=== PATIENT | male | born 1990 | race Caucasian/White ===

== ENCOUNTER 2016-11-01 10:57 | Emergency (ER) | payer SELFPAY ==
[2016-11-01 11:19] VITALS: BP 133/86
--- NOTE | 2016-11-01 11:20 | ED Physician Documentation ---
Sore Throat/Dental Pain - HISTORIAN Historian: patient - HPI Chief Complaint: Dental Pain Onset: days ago (3-4 days) Context: Fractured Tooth, Abscess, Dental Caries Associated Symptoms: moderate, R ear pain Worsened By: heat, cold (can eat soft foods only) - ROS CONST: no problems CVS/RESP: none GI/: denies: problems urinating, nausea, vomiting NEURO/PSYCH: none - PAST HX Past History: other (seizures) Other History: none Allergies/Adverse Reactions: Allergies Allergy/AdvReac Type Severity Reaction Status Date / Time tramadol Allergy Severe seizure Verified 11/01/16 11:09 Home Medications: Ambulatory Orders Medication Instructions Recorded NK [NK] 11/01/16 - SOCIAL HX Smoking History: less than 1 pack/day Alcohol Use: occasionally Drug Use: none - FAMILY HX Family History: No - REVIEWED ASSESSMENTS Nursing Assessment Reviewed: Yes Vitals Reviewed: Yes Dental Pain Physical Exam - EXAM General Appearance: moderate distress Head/Neck: head nml inspection Eyes: eyes nml inspection Mouth/Throat: gum swelling around teeth, widespread dental decay Respiratory: no resp. distress, breath sounds nml CVS: reg. rate & rhythm, heart sounds nml Abdomen: soft, non-tender Extremities: non-tender, nml ROM Skin: warm/dry, normal color. No: cyanosis, diaphoresis, jaundice Neuro/Psych: anxiety, depression. No: weakness Discharge Clincal Impression: dental caries abscess Home Medications: Ambulatory Orders NK [NK] 11/01/16 Comments: teeth 17 18 19. must see dentist very soon Condition: Fair Disposition: 01 HOME, SELF-CARE Decision to Admit: NO Decision Time: 11:23
== END 2016-11-01 11:20 | disposition home or self-care (01) ==
LOC: ED 10:57
DX: K02.9 Dental caries, unspecified (principal)
CPT/HCPCS: 99282; 99283

== ENCOUNTER 2016-11-28 09:17 | Emergency (ER) | payer SELFPAY ==
--- NOTE | 2016-11-28 09:33 | ED Physician Documentation ---
Seizure - HISTORIAN Historian: patient - HPI Stated Complaint: seizure Chief Complaint: Seizure Last known Well Date: 11/28/16 Last Known Well Time: 10:53 Last known Well Code/Unknown Code: Known Witnessed By: family Preceding Symptoms: none Character of Seizure(s): lost consciousness, "shaking all over". denies: incontinence of urine, incontinence of stool Postictal Symptoms: confusion Location of Injury: other (generalized pain to the left side) Further Comments: yes (Patient states that he has seizures. Has one about every 4-6 months. Had a seizure yesterday that was witnessed. No precipitating factor noted. Has not been taking seizure med since 2013, had been taking Keppra . Patient states that he has been having a lot of pain on the left side associated with his seizure.) - ROS NEURO/PSYCH: denies: headache, fainting EYES/ENT: none CVS/RESP: other (chest wall pain) GI/: denies: nausea, vomiting - PAST HX Previous seizure/seizure disorder: none Allergies/Adverse Reactions: Allergies Allergy/AdvReac Type Severity Reaction Status Date / Time tramadol Allergy Severe seizure Verified 11/01/16 11:09 Home Medications: Ambulatory Orders Medication Instructions Recorded NK [NK] 11/01/16 - SOCIAL HX Smoking History: less than 1 pack/day Alcohol Use: none Drug Use: none - FAMILY HX Family History: seizure (grandfather) - VITAL SIGNS Vital Signs: Vital Signs Temp Pulse Resp BP Pulse Ox 97.8 F 70 16 118/68 99 11/28/16 09:20 11/28/16 10:12 11/28/16 10:12 11/28/16 10:12 11/28/16 10:12 - REVIEWED ASSESSMENTS Nursing Assessment Reviewed: Yes Vitals Reviewed: Yes ED Results Lab/Radiology - Orders Orders: ED Orders Category Date Time Status RIBS UNILAT 2 VIEWS [RAD] Stat Exams 11/28/16 Taken Ketorolac Tromethamine [Toradol] Med 11/28/16 10:03 Discontinued 60 mg .ROUTE .STK-MED ONE Ketorolac Tromethamine [Toradol] Med 11/28/16 10:03 Discontinued 60 mg IM NOW ONE Seizure Physical Exam - Physical Exam General Appearance: alert, mild distress Altered Mental Status Higher Functions: alert, oriented x3, no evidence of acute CVA, mood/affect nml Neck/Back: normal inspection Respiratory: no resp. distress, breath sounds nml, other (tenderness over th 5, 6 lateral/posterior rib). No: wheezes, rales, rhonchi, crepitus CVS: reg rate & rhythm, heart sounds normal, equal pulses, no murmur, no gallop Abdomen: non-tender, no organomegaly Skin: warm/dry, normal color Extremities: normal range of motion, non-tender, normal inspection, no calf tenderness Observed Seizure Activity in ED: other (none) - Nexus Criteria Neg Nexus Criteria: Nexus criteria neg Discharge Clincal Impression: Contusion, multiple sites, Seizure disorder Referrals: Primary Doctor,No [Primary Care Provider] - 2 Days Additional Instructions: It is important for you to get started on your seizure medication again. Consider going the the Division of Family Services to see if they can help. Do not Drive. Take some Aleve two tablets twice a day to help with pain that you ra having. Take with food. Home Medications: Ambulatory Orders NK [NK] 11/01/16 Condition: Stable Disposition: HOME, SELF-CARE Decision to Admit: NO Date of Decison to Admit: 11/28/16 Decision Time: 10:04
[2016-11-28] MEDS ORDERED: KETOROLAC TROMETHAMINE 60 MG/2 ML VIAL ONE (10:03)
[2016-11-28] MEDS ORDERED: KETOROLAC TROMETHAMINE 60 MG/2 ML VIAL IM ONE (10:03)
[2016-11-28 10:14] VITALS: BP 118/68
--- NOTE | 2016-11-28 14:04 | Diagnostic Imaging Report ---
MICHELE DE LA CRUZ [facility] [address] [facility] [address] [address] Report Submission Date: Nov 28, 2016 10:34:18 AM CDT Patient Study Name: KRISTIN NICOLE Date: Nov 28, 2016 9:37:59 AM CDT Modality Type: CR Gender: M Description: CHEST : 89 Institution: [facility] Physician: MICHELE DE LA CRUZ Left ribs three views Clinical history left pain after seizure Technique AP oblique cone-down FINDINGS: There is no fracture of the left ribs. No pneumothorax or hemothorax is identified. . IMPRESSION: Negative Electronically signed on Nov 28, 2016 10:34:18 AM CDT by: Giles SERNA
== END 2016-11-28 10:12 | disposition home or self-care (01) ==
LOC: ED 09:17
DX: G40.909 Epilepsy, unspecified, not intractable, without status epilepticus (principal)
CPT/HCPCS: 71100; J1885; 96372; 99283

== ENCOUNTER 2016-12-25 07:46 | Emergency (ER) | payer SELFPAY ==
[2016-12-25] MEDS ORDERED: LORazepam 2 MG/ML VIAL ONE (07:56)
[2016-12-25] MEDS ORDERED: LORazepam 2 MG/ML VIAL IVP ONE (07:58)
--- NOTE | 2016-12-25 08:04 | ED Physician Documentation ---
Seizure - HISTORIAN Historian: patient, paramedics - [facility] Chief Complaint: Seizure Additional Information: seizure lasting approx 20 min reported by paramedics at home this am. pt had "old" keppra med yesterday but apparently has been been non compliant w/meds per ems. pt appears slightly post ictal at this time Timing/Onset/Duration: single episode Last known Well Date: 12/24/16 Last Known Well Time: 11:11 Last known Well Code/Unknown Code: Known Witnessed By: family Preceding Symptoms: none Character of Seizure(s): "shaking all over". denies: lost consciousness Postictal Symptoms: speech difficulty Location of Injury: none Further Comments: no - ROS NEURO/PSYCH: denies: headache, fainting, dizziness CVS/RESP: denies: chest pain, shortness of breath GI/: nausea. denies: adominal pain, vomiting - PAST HX Previous seizure/seizure disorder: other (none for several months) Etiology: idiopathic Other History: none Surgeries/Procedures: other (adult corcumcision) Allergies/Adverse Reactions: Allergies Allergy/AdvReac Type Severity Reaction Status Date / Time tramadol Allergy Severe seizure Verified 12/25/16 08:06 cyclobenzaprine HCl Allergy Verified 12/25/16 08:33 [From Flexeril] ketorolac tromethamine Allergy Verified 12/25/16 08:33 [From Toradol] Home Medications: Ambulatory Orders Medication Instructions Recorded NK [NK] 11/01/16 - SOCIAL HX Smoking History: less than 1 pack/day Alcohol Use: none Drug Use: marijuana - FAMILY HX Family History: none - VITAL SIGNS Vital Signs: Vital Signs Temp Pulse Resp BP Pulse Ox 98 F 100 H 18 118/72 99 12/25/16 07:51 12/25/16 09:53 12/25/16 09:53 12/25/16 09:53 12/25/16 09:53 - REVIEWED ASSESSMENTS Nursing Assessment Reviewed: Yes Vitals Reviewed: Yes ED Results Lab/Radiology - Lab Results Lab Results: Lab Results 12/25/16 08:00 WBC 10.90 K/ul K/ul (4.00-12.00) RBC 4.59 M/ul M/ul (3.90-5.20) Hgb 15.8 g/dL g/dL (12.0-18.0) Hct 46.8 % % (37.0-53.0) MCV 102.0 fl H fl (80.0-100.0) MCH 34.5 pg H pg (28.0-34.0) MCHC 33.8 g/dL g/dL (30.0-36.0) RDW 12.2 % % (11.3-14.3) Plt Count 306 K/mm3 K/mm3 (130-400) Neut % (Auto) 58.2 % % (39.0-79.0) Lymph % (Auto) 29.7 % % (16.0-50.0) Dale % (Auto) 5.7 % % (0.0-11.0) Eos % (Auto) 3.9 % % (0.0-6.8) Baso % (Auto) 0.6 (0.0-1.5) Neut # 6.3 # k/uL # k/uL (1.4-7.7) Lymph # 3.2 # k/uL # k/uL (0.6-4.0) Dale # 0.6 # k/uL # k/uL (0.0-0.9) Eos # 0.4 # k/uL # k/uL (0.0-0.6) Baso # 0.1 # k/uL # k/uL (0.0-0.5) Reactive Lymphs % 1.9 % % (0.0-5.0) Reactive Lymphs # 0.2 # k/uL # k/uL (0.0-0.8) - Orders Orders: ED Orders Category Date Time Status CBC/PLATELET/DIFF Routine Lab 12/25/16 08:00 Completed Diazepam [Valium] Med 12/25/16 08:36 Discontinued 5 mg PO NOW ONE HYDROcodone /APAP 10/325 [[place] 10/325] Med 12/25/16 08:33 Discontinued 1 each PO NOW ONE LORazepam [Ativan] Med 12/25/16 07:58 Discontinued 1 mg IVP NOW ONE LORazepam [Ativan] Med 12/25/16 07:56 Discontinued 2 mg .ROUTE .STK-MED ONE EKG WITH COMPARISON Stat Ther 12/25/16 Completed Seizure Physical Exam - Physical Exam General Appearance: mild distress Altered Mental Status Higher Functions: alert, oriented x3 EENT: nml eye inspection, PERRL Neck/Back: normal inspection (sore in back and somewhat all over) Respiratory: no resp. distress CVS: reg rate & rhythm, heart sounds normal Abdomen: non-tender Extremities: normal range of motion, other (dtr hypoer active no apparent seizure activity at this time-words slightly slurred) Observed Seizure Activity in ED: generalized - Nexus Criteria Neg Nexus Criteria: Nexus criteria neg. denies: midline tenderness Discharge Clincal Impression: recurrent seizure-post ictal Referrals: Primary Doctor,No [Primary Care Provider] - 2 Days Home Medications: Ambulatory Orders NK [NK] 11/01/16 Condition: Good Disposition: HOME, SELF-CARE Decision to Admit: NO Decision Time: 11:22
[2016-12-25 08:12] LABS: BASOPHILS % 0.6 (0.0-1.5); EOSINOPHILS % 3.9 % (0.0-6.8); MEAN CORPUSCULAR HEMOGLOBIN 34.5 pg (28.0-34.0); MONOCYTES % 5.7 % (0.0-11.0); NEUTROPHILS # 6.3 # k/uL (1.4-7.7)
[2016-12-25] MEDS ORDERED: HYDROcodone /APAP 10/325 1 EACH TABLET PO ONE (08:33)
[2016-12-25] MEDS ORDERED: DIAZEPAM 5 MG TABLET PO ONE (08:36)
[2016-12-25 10:01] VITALS: BP 118/72
== END 2016-12-25 09:45 | disposition home or self-care (01) ==
LOC: ED 07:46
DX: R56.9 Unspecified convulsions (principal)
CPT/HCPCS: 36415; 85025; 93005; J2060; 96374; 99283

== ENCOUNTER 2018-07-23 15:28 | Emergency (ER) | payer SELFPAY ==
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
[2018-07-23 16:01] LABS: MEAN CORPUSCULAR HEMOGLOBIN 33.8 pg (28.0-34.0)
[2018-07-23 16:02] LABS: BASOPHILS % 0.7 (0.0-1.5); EOSINOPHILS % 2.6 % (0.0-6.8); MONOCYTES % 4.6 % (0.0-11.0); NEUTROPHILS # 15.3 # k/uL (1.4-7.7)
[2018-07-23] MEDS: 0.9 % SODIUM CHLORIDE 1,000 ML IV ONE (16:04)
--- NOTE | 2018-07-23 16:28 | Diagnostic Imaging Report ---
KAROLINE BURNS [facility] [address] [facility] [address] [place] [address]. [id number] Report Submission Date: Jul 23, 2018 1:26:02 PM [employer] Patient Study Name: SIRISHA MARIE Date: Jul 23, 2018 1:06:04 PM [employer] Modality Type: CT Gender: F Description: CT MAXILLOFACIAL W/O D : [birth year] Institution: [facility] Physician: KAROLINE BURNS Examination: CT Sinuses/Maxillofacial History: ALLERGY TESTING. CONGESTION X 1 1/2 YEARS. (Hx) Comparison exams: None available Technique: Axial imaging with sagittal and coronal reconstruction. Findings: Left maxillary sinus mucous retention cysts. Mild mucous thickening involving the right mid ethmoid sinuses with involvement the ostiomeatal unit. Remaining sinuses are otherwise clear. No air fluid level. No septal deviation. Remaining visualized osseous and soft tissue structure within normal limits. Streak artifact from dental hardware. Impression: Left maxillary sinus mucous retention cyst with mucus thickening involving the right ethmoid sinuses including the ostiomeatal unit. No air fluid level. Electronically signed on Jul 23, 2018 1:26:02 PM [employer] by: Ronny SERNA
[2018-07-23 16:36] LABS: eGFR (Non-African) > 60
[2018-07-23] MEDS: fentaNYL CITRATE/PF 100 MCG/2 ML INJ. IVP ONE ×2 (16:44→17:14)
[2018-07-23] MEDS: ceFAZolin SODIUM 1 GM VIAL IV ONE (16:45)
[2018-07-23] MEDS: 0.9 % SODIUM CHLORIDE 500 ML IV ONE (17:04)
[2018-07-23 17:17] VITALS: BP 127/68
== END 2018-07-23 17:15 | disposition home or self-care (01) ==
LOC: ED 15:28
DX: L03.211 Cellulitis of face (principal); Y04.0XXA Assault by unarmed brawl or fight, initial encounter; Y92.9 Unspecified place or not applicable
CPT/HCPCS: 70486; 80053; 85025; 96365; 96375; 96376; 99284; J0690; J3010; J7060; J7030; S1016

== ENCOUNTER 2018-12-22 22:02 | Emergency (ER) | payer SELFPAY ==
[2018-12-22] MEDS: POLYMYXIN B SULF/TRIMETHOPRIM OPHTH 15 ML OS ONE (22:26)
--- NOTE | 2018-12-22 22:26 | ED Physician Documentation ---
Eye Problem - HISTORIAN Historian: patient - HPI Stated Complaint: "My left eye mckenna and itches I can't keep it open" Chief Complaint: Eye Problems Onset: days ago (2 days ago; worse) Associated symptoms: pain, redness, matting Location: left eye Severity: moderate Apparent Injury: no - ROS CONST: no problems MS/SKIN/LYMPH: denies: weakness, numbness, neck pain, back pain, ankle swelling, leg swelling, rash, other CVS/RESP: none EYES/ENT: none GI/: denies: problems urinating, nausea, vomiting, other NEURO: denies: headache - PAST HX Past History: none Allergies/Adverse Reactions: Allergies Allergy/AdvReac Type Severity Reaction Status Date / Time tramadol Allergy Severe seizure Verified 12/22/18 22:21 clams Allergy Verified 12/22/18 22:21 cyclobenzaprine HCl Allergy Verified 12/22/18 22:21 [From Flexeril] ketorolac tromethamine Allergy Verified 12/22/18 22:21 [From Toradol] shellfish derived Allergy Verified 12/22/18 22:21 Home Medications: Ambulatory Orders Medication Instructions Recorded NK 11/01/16 - SOCIAL HX Smoking History: cigarettes - FAMILY HX Family History: denies: none - VITAL SIGNS Vital Signs: Vital Signs Temp Pulse Resp BP Pulse Ox 98.8 F 97 H 16 122/70 99 12/22/18 22:14 12/22/18 22:14 12/22/18 22:14 12/22/18 22:14 12/22/18 22:14 - REVIEWED ASSESSMENTS Nursing Assessment Reviewed: Yes Vitals Reviewed: Yes ED Results Lab/Radiology - Orders Orders: ED Orders Category Date Time Status Polymyxin B/Trimethoprim Opth [Polytrim Opth] Med 12/22/18 22:19 Once 1 drop OS NOW ONE Eye Problem Physical Exam - Physical Exam General Appearance: moderate distress Visual Acuity: see nursing assessment Eyelids: nml inspection Conjunctiva and Sclera: nml inspection (right), injected (L), exudate (L) Corneas: nml inspection EOM: intact Pupils: equal Skin: nml color Respiratory: no resp distress CVS: reg rate & rhythm Neuro/Psych: oriented x3, neuro intact, mood/affect nml Discharge Clincal Impression: Conjunctivitis, left eye Qualifiers: Conjunctivitis type: acute Acute conjunctivitis type: bacterial Qualified Code(s): H10.32 - Unspecified acute conjunctivitis, left eye Referrals: Primary Doctor,No [Primary Care Provider] - 2 Days Additional Instructions: Cool compress to left eye Tylenol or ibuprofen as needed for discomfort. Polytrim eye drops every 3 hours x 7 days. Condition: Stable Disposition: 01 HOME, SELF-CARE Decision to Admit: NO Decision Time: 22:25
[2018-12-22 22:36] VITALS: BP 127/68
== END 2018-12-22 22:35 | disposition home or self-care (01) ==
LOC: ED 22:02
DX: H10.32 Unspecified acute conjunctivitis, left eye (principal); Z72.0 Tobacco use
CPT/HCPCS: 99283